=== PATIENT | female | born 1990 | race Caucasian/White ===

== ENCOUNTER 2021-06-06 16:25 | Inpatient (IN) ==
[2021-06-06] MEDS ORDERED: BUTORPHANOL 2 MG/ML VIAL IV PRN (17:29)
[2021-06-06] MEDS ORDERED: ONDANSETRON 4 MG/2 ML VIAL IV PRN ×2 (17:30→21:22)
[2021-06-06] MEDS ORDERED: LACTATED RINGERS 1,000 ML IV SCH ×3 (18:00→18:30)
[2021-06-06] MEDS ORDERED: MEPERIDINE 50 MG/1 ML VIAL IV PRN (18:03)
[2021-06-06 18:11] LABS: Basophils % 0.2 % (0.0-0.8); Eosinophils # 0.1 10*3/uL (0.0-0.87); Eosinophils % 1.4 % (0.00-10.9); Immature Granulocytes % 0.5 %; Immature Granulocytes Absolute 0.03 #; Lymphocytes # 1.5 10*3/uL (1.4-4.0); Mean Corpuscular HGB Conc 33.3 GM/DL (32-36); Mean Corpuscular Volume 85.9 FL (87-102); Mean Platelet Volume 10.8 FL (9.6-12.0); Monocytes % 5.6 % (1.7-12.7); Neutrophils % 65.3 % (38.7-73.9); Platelet Count 189 T/CUMM (130-400); Red Blood Count 4.19 MC/CUMM (3.8-5.5); Red Cell Distribution Width 14.2 % (9.3-17.3); White Blood Count 5.6 T/CUMM (4-12)
[2021-06-06] MEDS ORDERED: ePHEDrine 50 MG/ML VIAL IV PRN (18:11)
[2021-06-06] MEDS ORDERED: FAMOTIDINE 20 MG/2 ML VIAL IV ONE (18:11)
[2021-06-06] MEDS ORDERED: LACTATED RINGERS 1,000 ML IV ONE (18:11)
[2021-06-06] MEDS ORDERED: PROMETHAZINE 25 MG/1 ML VIAL IM ONE (18:11)
[2021-06-06] MEDS ORDERED: hydrOXYzine HCL 25 MG/1 ML VIAL IM PRN (18:11)
[2021-06-06] MEDS ORDERED: LACTATED RINGERS 500 ML IV ONE (18:11)
[2021-06-06] MEDS ORDERED: NALOXONE 0.4 MG/ML VIAL IV PRN (18:11)
[2021-06-06] MEDS ORDERED: CITRIC ACID/SODIUM CITRATE 30 ML UDCUP PO ONE (18:11)
[2021-06-06] MEDS ORDERED: diphenhydrAMINE 50 MG/1 ML VIAL IV PRN ×2 (18:11)
[2021-06-06 18:30] LABS: Alanine Aminotransferase 17 U/L (13-56); Alkaline Phosphatase 174 U/L (45-117); Aspartate Amino Transferase 17 U/L (0-37); Bilirubin,Total < 0.39 MG/DL (0.20-1.00); Blood Urea Nitrogen 8 MG/DL (7-18); Calcium 9.4 MG/DL (8.5-10.1); Carbon Dioxide 19 MMOL/L (21-32); Estimated Glom Filtration Rate 124 ML/MIN; Glucose 88 MG/DL (74-106); Osmolality,Calculated 269.8 MOS/KG (273-304); Potassium 3.4 MMOL/L (3.5-5.1); Sodium 137 MMOL/L (136-145); Total Protein 7.3 G/DL (6.4-8.2)
[2021-06-06] MEDS ORDERED: fentaNYL 2 MCG/ROPIV 0.2% EPID 100 ML EPIDURAL SCH (18:30)
[2021-06-06] MEDS ORDERED: miSOPROStoL 200 MCG TABLET ONE (19:39)
[2021-06-06] MEDS ORDERED: METHYLERGONOVINE 0.2 MG/1 ML AMP ONE (19:39)
[2021-06-06] MEDS ORDERED: TRANEXAMIC ACID 1,000 MG/10 ML VIAL ONE (19:39)
[2021-06-06] MEDS ORDERED: CARBOPROST TROMETHAMINE 250 MCG/ML AMP IM ONE (19:40)
[2021-06-06] MEDS ORDERED: LIDOCAINE 1% 50 ML VIAL ONE (20:13)
[2021-06-06] MEDS ORDERED: OXYTOCIN/LR 20 UNIT/1,000 ML BAG IV ONE ×2 (20:16→21:22)
[2021-06-06] MEDS ORDERED: OXYTOCIN/LR 20 UNIT/1,000 ML BAG IV SCH (21:00)
[2021-06-06] MEDS ORDERED: RHO(D) IMMUNE GLOBULIN 300 MCG SYRINGE IM ONE (21:22)
[2021-06-06] MEDS ORDERED: LANOLIN 50% CREAM 0.3 OZ TUBE TOP PRN (21:22)
[2021-06-06] MEDS ORDERED: BISACODYL 10 MG SUPP RECTAL PRN (21:22)
[2021-06-06] MEDS ORDERED: ACETAMINOPHEN 325 MG TABLET PO PRN (21:22)
[2021-06-06] MEDS ORDERED: oxyCODONE/ACETAMINOPHEN 5-325 MG TABLET PO PRN (21:22)
[2021-06-06] MEDS ORDERED: DIPH/TET/ACEL PERT BOOSTER VACCINE 0.5 ML VIAL IM ONE (21:22)
[2021-06-06] MEDS ORDERED: MEASLES/MUMPS/RUBELLA VACCINE 0.5 ML VIAL SUBCUT ONE (21:22)
[2021-06-06] MEDS ORDERED: HYDROCORTISONE 2.5% RECTAL CREAM 30 GM TUBE TOP PRN (21:22)
[2021-06-06] MEDS ORDERED: WITCH HAZEL PADS 100/JAR TOP PRN (21:22)
[2021-06-06] MEDS ORDERED: BENZOCAINE 20%/MENTHOL 0.5% SPRAY 56 GM CAN TOP PRN (21:22)
[2021-06-06 21:26] LABS: Cord Arterial Blood HCO3 19.9 MMOL/L
[2021-06-06 21:29] LABS: Cord Venous Blood HCO3 21.4 MMOL/L; Cord Venous Blood PCO2 42.4 MMHG; Cord Venous Blood PO2 22.7
[2021-06-06] MEDS: POTASSIUM CHLORIDE 20 MEQ TABLET PO SCH (22:12)
[2021-06-07 06:54] LABS: Basophils % 0.2 % (0.0-0.8); Eosinophils # 0.1 10*3/uL (0.0-0.87); Eosinophils % 0.8 % (0.00-10.9); Hematocrit 33.7 VOL% (35.7-47.0); Hemoglobin 10.8 GM/DL (12.0-16.0); Immature Granulocytes % 0.4 %; Immature Granulocytes Absolute 0.04 #; Lymphocytes # 2.1 10*3/uL (1.4-4.0); Lymphocytes % 20.9 % (21.3-54.2); Mean Corpuscular Volume 88.2 FL (87-102); Mean Platelet Volume 11.1 FL (9.6-12.0); Monocytes % 5.2 % (1.7-12.7); Neutrophils % 72.5 % (38.7-73.9); Platelet Count 171 T/CUMM (130-400); Red Blood Count 3.82 MC/CUMM (3.8-5.5); Red Cell Distribution Width 14.1 % (9.3-17.3); White Blood Count 9.8 T/CUMM (4-12)
[2021-06-07] MEDS: IBUPROFEN 800 MG TABLET PO PRN ×2 (07:19→18:08)
[2021-06-07] MEDS: POTASSIUM CHLORIDE 20 MEQ TABLET PO SCH ×2 (09:29→22:28)
[2021-06-07] MEDS: DOCUSATE SODIUM 100 MG CAPSULE PO SCH ×2 (09:29→22:27)
[2021-06-07] MEDS: oxyCODONE/ACETAMINOPHEN 5-325 MG TABLET PO PRN (22:28)
[2021-06-08] MEDS: DOCUSATE SODIUM 100 MG CAPSULE PO SCH ×2 (09:10→21:30)
[2021-06-08] MEDS: POTASSIUM CHLORIDE 20 MEQ TABLET PO SCH (09:10)
[2021-06-08] MEDS: IBUPROFEN 800 MG TABLET PO PRN (14:03)
[2021-06-08] MEDS ORDERED: BENZONATATE 100 MG CAPSULE PO PRN (19:04)
[2021-06-08] MEDS ORDERED: guaiFENesin 200 MG/10 ML UDCUP PO PRN (19:52)
[2021-06-08] MEDS: oxyCODONE/ACETAMINOPHEN 5-325 MG TABLET PO PRN (21:28)
== END 2021-06-08 21:31 | disposition home or self-care (01) | DRG 805 ==
LOC: N.LDOUT 16:25 → N.LD 16:33
PROVIDERS: ADMIT Specialist; ATTEND Specialist